=== PATIENT | female | born 1990 | race Caucasian/White ===

== ENCOUNTER 2024-11-16 08:43 | Emergency (ER) | payer OTHER, SELFPAY ==
[2024-11-16 08:44] VITALS: BP 129/80
--- NOTE | 2024-11-16 08:56 | EDRN ---
Cee Pichardo PA in room w/ pt at this time.
--- NOTE | 2024-11-16 09:07 | ED.GENMED ---
History of Present Illness
General
Time Seen by Provider: 11/16/24 08:52
History of Present Illness
History of Present Illness:
27-year-old female presents to the emergency department for evaluation of nosebleeds that began this morning. Notes that she tested positive for COVID-19 2 days ago and has had cough, fever, and chills since that time. No history of nosebleeds.
Not on any anticoagulants
Review of Systems
Review of Systems
Allergies reviewed?: Yes
All Other Systems: ROS reviewed and negative except as documented in HPI and ROS
Phy Exam
Physical Exam
Physical Exam:
GEN: Well appearing, NAD, WDWN
HEENT: Oral mucosa moist, no scleral icterus. Evidence of mild active bleeding from the left anterior nasal septum. No brisk oropharyngeal bleeding
Cardiac: Regular rate
Lung: No respiratory distress, no tachypnea
MSK: No gross deformity or injuries
Skin: Good color, no pallor or jaundice, no rashes
Neuro: AO x3, moves all extremities freely
Psych: Calm, cooperative
Course
Vital Signs
Initial and Last Documented VS:
Initial Vital Signs
Temp Pulse Resp BP Pulse Ox
97.9 F 82 18 129/80 98
11/16/24 08:44 11/16/24 08:44 11/16/24 08:44 11/16/24 08:44 11/16/24 08:44
Last Documented Vital Signs
Temp Pulse Resp BP Pulse Ox
97.9 F 82 16 117/82 99
11/16/24 08:44 11/16/24 09:16 11/16/24 09:16 11/16/24 09:16 11/16/24 09:16
MDM/Problems Addressed
MDM/Problems Addressed:
After instillation of lidocaine and epinephrine the patient was cauterized to the site of bleeding at the anterior septum. She was noted to have mild trickling blood from a small abrasion to the inner nasal ala, no evidence for oropharyngeal
bleeding. Educated on supportive care
*Critical Care Note
Total Time (30-74mins, 75-104mins- exclusive of procedures): Not Applicable
ED Attending Note
-
Portions of this chart may have been created with voice recognition software.� Occasional wrong word or��sound alike� substitutions may have occurred due to the inherent limitations of voice recognition software.
Discharge Plan
Departure
Patient Disposition: Home (Routine Discharge)
Date of Disposition: 11/16/24
Time of Disposition: 10:24
Patient with high blood pressure during this ER visit?: No
Discharge Problem:
Acute anterior epistaxis
Instructions: Nosebleeds (DC)
Prescriptions:
No Action
[id number] 1 mg Tablet
1 tab PO DAILY
albuterol 90 mcg/actuation Aerosol
1 mcg INHALATION PRN PRN (Reason: SOB)
sennosides-docusate sodium [Stool Softener-Stimulant Laxat] 8.6-50 mg Tablet
1 tab PO DAILYPRN PRN (Reason: constipation) Qty: 0 0RF
ibuprofen 600 mg Tablet
600 mg PO Q6HPRN PRN (Reason: moderate pain/cramps) Qty: 60 0RF
acetaminophen 325 mg Tablet
650 mg PO Q4HPRN PRN (Reason: mild pain) Qty: 0 0RF
Referrals:
Shukri Goncalves I., DO [Family Provider] -
Activity Restrictions/Additional Instructions:
Neosporin or Vaseline to the left nostril twice daily for 1 week
With any further bleeding, apply pressure for 15-20 minutes; if direct pressure does not resolve bleeding, return to the ER
Avoid forceful blowing of the nose. If necessary, irrigate with saline and gently blow to clear mucus
Return to the ER with any severe nasal pain, redness or swelling
Interventions
Interventions:
*Risk Screen - Suicide Last Done: 11/16/24 08:44
*General Assessment Last Done: 11/16/24 09:13
*Neglect/Abuse Screening Last Done: 11/16/24 08:44
*ED- Fall Risk Assessment Last Done: 11/16/24 09:13
*ED COVID-19 Vaccine History Last Done: 11/16/24 09:13
*Nursing Disposition Last Done: 11/16/24 10:30
ED-EENT Assessment Last Done: 11/16/24 09:15
Discharge Date and Time
Discharge Date/Time: 11/16/24 10:30
Print Language: GUAMANIAN
[2024-11-16 09:13] VITALS: BMI 22.9
[2024-11-16 09:16] VITALS: BP 117/82
== END 2024-11-16 10:30 | disposition home or self-care (01) ==
LOC: EMR 08:43
PROVIDERS: EMERGENCY PHYSICIAN Emergency Medicine; FAMILY PHYSICIAN Internal Medicine
DX: R04.0 Epistaxis (principal)
CPT/HCPCS: 30901; 99282

== ENCOUNTER → 2025-04-21 14:39 | Outpatient (REF) | payer OTHER, SELFPAY | LOC: HWRAD 14:39 | PROVIDERS: ATTENDING PHYSICIAN Nurse Practitioner Family; REFERRING PHYSICIAN Student in an Organized Health Care Education/Training Program | DX: R59.1 Generalized enlarged lymph nodes (principal) | CPT/HCPCS: 76536 ==

== ENCOUNTER → 2025-05-11 08:51 | Outpatient (REF) | payer OTHER, SELFPAY | LOC: RAD 08:51 | PROVIDERS: ATTENDING PHYSICIAN Student in an Organized Health Care Education/Training Program; FAMILY PHYSICIAN Nurse Practitioner Family | DX: R59.0 Localized enlarged lymph nodes (principal) | CPT/HCPCS: 76536 ==

== ENCOUNTER → 2025-06-08 13:25 | Outpatient (REF) | payer OTHER, SELFPAY | LOC: RAD 13:25 | PROVIDERS: ATTENDING PHYSICIAN Student in an Organized Health Care Education/Training Program; FAMILY PHYSICIAN Nurse Practitioner Family | DX: R59.0 Localized enlarged lymph nodes (principal) | CPT/HCPCS: 76536 ==